=== PATIENT | female | born 1995 | race Caucasian/White ===

== ENCOUNTER 2017-06-04 21:35 | Emergency (ER) | payer MEDICAID ==
[~2017-06-04] VITALS: Ht 149.9 cm; Wt 47.3 kg
[2017-06-04] MEDS ORDERED: KETOROLAC 30 MG/1 ML ONE (22:07)
[2017-06-04] MEDS ORDERED: DIPHENHYDRAMINE 50 MG/ML, 1ML ONE (22:08)
[2017-06-04] MEDS ORDERED: PROCHLORPERAZINE 5 MG/ML, 2ML ONE (22:08)
[2017-06-04] MEDS ORDERED: PROCHLORPERAZINE 5 MG/ML, 2ML IM ONE (22:30)
[2017-06-04] MEDS ORDERED: PROCHLORPERAZINE 5 MG/ML, 2ML IVPush ONE (22:30)
[2017-06-04] MEDS ORDERED: SODIUM CHLORIDE FLUSH 10ML SYR IVF SCH (22:30)
[2017-06-04] MEDS ORDERED: KETOROLAC 30 MG/1 ML IVPush ONE (22:30)
[2017-06-04] MEDS ORDERED: KETOROLAC 30 MG/1 ML IM ONE (22:30)
[2017-06-04] MEDS ORDERED: DIPHENHYDRAMINE 50 MG/ML, 1ML IM ONE (22:30)
[2017-06-04] MEDS ORDERED: DIPHENHYDRAMINE 50 MG/ML, 1ML IVPush ONE (22:30)
[2017-06-04] MEDS ORDERED: SODIUM CHLORIDE 0.9% 1,000 ML IV ONE (22:30)
[2017-06-04 23:30] VITALS: BP 122/78
== END 2017-06-04 23:33 | disposition home or self-care (01) ==
LOC: ED 23:27
DX: G43.009 Migraine without aura, not intractable, without status migrainosus (principal)
CPT/HCPCS: 96361; 96374; 96375; 99284; J0780; J1200; J1885; J7030